=== PATIENT | male | born 1980 | race Caucasian/White ===

== ENCOUNTER 2018-03-31 10:34 | Emergency (ER) | payer SELFPAY ==
[~2018-03-31] VITALS: Ht 175.3 cm; Wt 97.1 kg
[2018-03-31 10:42] VITALS: BP 138/87
--- NOTE | 2018-03-31 10:45 | NUR ---
Patient ambulated to bed 6. RN evaluating patient at bedside.
--- NOTE | 2018-03-31 10:50 | NUR ---
PATIENT PRESENTS TO ED WITH C/O RIGHT HAND SWELLING THIS AM; DENIES INJURY AND TRAUMA, DENIES FALL; STATES HE HAD MILD RIGHT WRIST PAIN A FEW DAYS AGO BUT HAS SINCE RESOLVED . VSS; PATIENT POSITIONED FOR COMFORT; HOB ELEVATED; BEDRAILS UP X2; BED DOWN. ER MD MADE AWARE OF PT STATUS.
--- NOTE | 2018-03-31 10:51 | NUR ---
Dr. López evaluating patient at bedside.
--- NOTE | 2018-03-31 11:14 | NUR ---
screening tech at bedside.
--- NOTE | 2018-03-31 12:16 | NUR ---
Dr. López evaluating patient at bedside.
[2018-03-31 12:23] VITALS: BP 128/82
--- NOTE | 2018-03-31 12:23 | NUR ---
Patient discharged with v/s stable. Written and verbal after care instructions given and explained. Patient verbalized understanding. Ambulatory with steady gait. All questions addressed prior to discharge. Advised to follow up with PMD.
== END 2018-03-31 12:23 | disposition home or self-care (01) ==
LOC: MED 10:34
DX: M25.531 Pain in right wrist (principal)
CPT/HCPCS: 73110; 99284

== ENCOUNTER 2018-04-21 08:53 | Emergency (ER) | payer SELFPAY ==
[~2018-04-21] VITALS: Ht 175.3 cm; Wt 95.3 kg
[2018-04-21 08:57] VITALS: BP 129/88
--- NOTE | 2018-04-21 09:04 | NUR ---
PT AMBULATES TO BED 6
--- NOTE | 2018-04-21 09:06 | NUR ---
C/O INTERMITTENT NON RADIATING RT FLANK PAIN X 4 DAYS WITH DYSURIA, DENIES FEVERS/CHIILS.PT LOOKS A LITTLE BIT PALE. PT'S SON AT BEDSIDE. PT STATES PAIN COMES AND GOES, PT FEELS GENRALIZED WEAKNESS . PT AWAKE, ALERT. ASSISTED PT TO BED, HOB ELEVATED 30 DEGREES WITH LOW BED POSITION. DR. LAIRD MADE AWARE OF PT STATUS.
[2018-04-21 10:03] LABS: BASOPHILS % (AUTO) 0.4 % (0.0-2.0); EOSINOPHILS # (AUTO) 0.1 K/uL (0-0.4); EOSINOPHILS % (AUTO) 2.4 % (0.0-4.0); HEMATOCRIT 46.7 % (36-52); HEMOGLOBIN 15.3 g/dL (12.0-18.0); LYMPHOCYTES # (AUTO) 1.9 K/uL (2.0-11.5); LYMPHOCYTES % (AUTO) 31.9 % (20.5-51.1); MEAN CORPUSCULAR HEMOGLOBIN 28 pg (27-31); MEAN CORPUSCULAR HGB CONC 33 g/dL (33-37); MONOCYTES # (AUTO) 0.3 K/uL (0.8-1.0); MONOCYTES % (AUTO) 4.8 % (1.7-9.3); NEUTROPHILS # (AUTO) 3.5 K/uL (1.8-7.7); NEUTROPHILS % (AUTO) 60.5 % (42.2-75.2); PLATELET COUNT (AUTO) 171 K/uL (140-450); RED BLOOD CELL COUNT(AUTO) 5.43 MIL/uL (4.20-6.10); RED CELL DISTRIBUTION WIDTH 13.7 % (11.6-13.7); WHITE BLOOD COUNT (AUTO) 5.8 K/uL (4.8-10.8)
[2018-04-21 10:07] LABS: APPEARANCE,URINE CLEAR (CLEAR); BILIRUBIN,URINE 1+ (NEGATIVE); BLOOD, URINE NEGATIVE (NEGATIVE); COLOR,URINE ORANGE (YELLOW); LEUKOCYTE ESTERASE ,URINE NEGATIVE (NEGATIVE); NITRITE, URINE NEGATIVE (NEGATIVE); PH,URINE 6.5 (5.0-9.0); UGLUCOSE NEGATIVE (NEGATIVE)
[2018-04-21 10:09] LABS: CREATININE 1.2 mg/dL (0.7-1.3)
[2018-04-21 10:14] LABS: ALBUMIN 4.1 g/dL (3.4-5.0); TOTAL BILIRUBIN 1.1 mg/dL (0.0-1.0)
[2018-04-21 10:18] LABS: RBC,URINE 0-5 (RARE) /HPF (0-5); WBC,URINE 0-5 (RARE) /HPF (0-5)
[2018-04-21 12:01] VITALS: BP 120/78
--- NOTE | 2018-04-21 12:02 | NUR ---
Patient discharged with v/s stable. Written and verbal after care instructions given and explained. Patient alert, oriented and verbalized understanding of instructions. Ambulatory with steady gait. All questions addressed prior to discharge. ID band removed. Patient advised to follow up with PMD. Rx of NAPROSY given. Patient educated on indication of medication including possible reaction and side effects. Opportunity to ask questions provided and answered.
== END 2018-04-21 12:02 | disposition home or self-care (01) ==
LOC: MED 08:53
DX: R10.9 Unspecified abdominal pain (principal)
CPT/HCPCS: 36415; 76705; 80053; 81001; 85025; 99285; Q0092